=== PATIENT | male | born 1985 | race Hispanic/Latino ===

== ENCOUNTER 2018-04-06 15:13 | Emergency (ER) | payer SELFPAY ==
[2018-04-06] MEDS ORDERED: ALUM & MAG HYDROX-SIMETHICONE 30 ML, LIDOCAINE VISCOUS 2% 15 ML PO ONE ×2 (15:23)
[2018-04-06] MEDS ORDERED: SODIUM CHLORIDE 0.9% 1000ML 1,000 ML IVS ONE ×2 (15:23→17:14)
[2018-04-06] MEDS ORDERED: LIDOCAINE HCL 2% (MOUTH-THROAT) 15 ML UD ONE (15:36)
[2018-04-06] MEDS ORDERED: ALUM & MAG HYDROX-SIMETHICONE 30 ML UD ONE (15:36)
--- NOTE | 2018-04-06 15:40 | RAD ---
Procedure: XR CHEST 1 VIEW Exam Date: 04/06/2018 Ordering Provider: Arron Logan Clinical Indication: chest pain Comparison: None Findings: Cardiomediastinal silhouette is within normal limits. No focal lung consolidation. No pleural effusion. No pneumothorax. No acute osseous abnormalities. Impression: 1. No acute abnormalities in the chest. Electronically signed by: Jeffrey Stark MD 04/06/2018 3:38 PM CDT
[2018-04-06] MEDS ORDERED: ALUMINUM & MAGNESIUM HYDROXIDE 30 ML UD PO ONE (17:09)
[2018-04-06] MEDS ORDERED: SUCRALFATE 1 GM/10 ML 1 GM UD PO ONE (17:14)
[2018-04-06] MEDS ORDERED: PANTOPRAZOLE SODIUM IV 40 MG VIAL IV ONE (17:14)
[2018-04-06] MEDS ORDERED: NITROGLYCERIN 0.4 MG 25 EA TAB SL ONE ×2 (17:53)
[2018-04-06 18:24] VITALS: TEMP 98
[2018-04-06] MEDS ORDERED: HYDROcodone 7.5MG/APAP 325MG 1 EA TAB PO ONE (18:24)
--- NOTE | 2018-04-06 20:11 | ED.PDOC ---
History of Present Illness - General Chief Complaint: Chest Pain/AR Stated Complaint: chest pain Time Seen by Provider: 04/06/18 15:19 Source: patient Exam Limitations: no limitations - History of Present Illness Initial Comments: The patient is a 32-year-old male presenting to the emergency room secondary to substernal and epigastric discomfort with radiation to the left shoulder area. He has had this for last 3 hours. He did get significantly hot today while at work. On further questioning the patient has had intermittent episodes of nausea for the better part of the last year. He actually reduce his alcohol intake as he was having increasing stomach problems. He is not having weight loss. He has not thrown up any. He has not passed any blood. No palpitations. No syncope or near-syncope. No history of any heart problems. No history of any lung problems.he did drink more heavily up until a month ago when he started reducing significantly. Timing/Duration: 1-3 hours Severity: moderate Improving Factors: nothing Worsening Factors: nothing Associated Symptoms: chest pain, loss of appetite, nausea/vomiting Allergies/Adverse Reactions: Allergies NO KNOWN ALLERGY Allergy (Verified 04/06/18 15:56) Home Medications: Ambulatory Orders Famotidine [Pepcid Tab] 20 mg PO BID #60 tab 04/06/18 Sucralfate Tab [Carafate Tab] 1 gm PO QID #120 tab 04/06/18 Review of Systems - Review of Systems Constitutional: States: no symptoms reported EENTM: States: no symptoms reported Respiratory: States: no symptoms reported Cardiology: States: chest pain Gastrointestinal/Abdominal: States: abdominal pain, nausea. Denies: constipation, diarrhea Genitourinary: States: no symptoms reported Musculoskeletal: States: no symptoms reported Skin: States: no symptoms reported Neurological: States: no symptoms reported Endocrine: States: no symptoms reported All other Systems: No Change from Baseline Past Medical History (General) - Patient Medical History Hx Stroke: No Hx of COPD: No Hx Cardiac Disorders: No Hx Congestive Heart Failure: No Hx Hypertension: No Hx Diabetes: No Hx Cancer: No Hx Hepatitis C: No Surgical History: no surgical history - Vaccination History Hx Tetanus, Diphtheria Vaccination: No Hx Influenza Vaccination: No Hx Pneumococcal Vaccination: No Immunizations Up to Date: No - Social History Hx Tobacco Use: No Hx Chewing Tobacco Use: No Hx Alcohol Use: No Hx Substance Use: No Hx Substance Use Treatment: No Hx Depression: No Feels Threatened In Home Enviroment: No Feels Threatened In a Relationship: No Hx Physical Abuse: No Hx Emotional Abuse: No Hx Suspected Abuse: No - Activities of Daily Living Hospice Agency (if applicable):: None - Female History Patient is a Female of Child Bearing Age (10 -59 yrs old): No Patient : No Family Medical History - Family History Mother Family History: Unknown Physical Exam - Physical Exam General Appearance: Alert, Comfortable, No apparent distress Eye Exam: bilateral normal Ears, Nose, Throat: hearing grossly normal, normal ENT inspection, normal pharynx Neck: full range of motion, supple, normal inspection Respiratory: lungs clear, normal breath sounds, no respiratory distress, no accessory muscle use Cardiovascular/Chest: normal peripheral pulses, regular rate, rhythm, no edema Peripheral Pulses: radial,right: 2+, radial,left: 2+, dorsalis pedis,right: 2+, dorsalis pedis,left: 2+ Gastrointestinal/Abdominal: soft, other - epigastric discomfort to palpation. No rebound or definite peritoneal signs. 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 nml as tested, alert, normal mood/affect, oriented x 3 Skin Exam: normal color Comments: Vital Signs - 24 hr 04/06/18 04/06/18 04/06/18 15:32 15:49 17:14 Temperature 99 F Pulse Rate [ 108 H 108 H 109 H monitor] Respiratory 21 22 20 Rate Blood Pressure 135/84 156/100 [left] O2 Sat by Pulse 96 98 Oximetry 04/06/18 04/06/18 04/06/18 17:31 17:50 18:23 Temperature 98 F Pulse Rate [ 92 H 74 monitor] Respiratory 19 21 Rate Blood Pressure 141/75 137/96 134/81 [left] O2 Sat by Pulse 97 97 Oximetry 04/06/18 04/06/18 19:26 20:08 Temperature Pulse Rate [ 88 86 monitor] Respiratory 20 16 Rate Blood Pressure 120/79 129/67 [left] O2 Sat by Pulse 97 98 Oximetry Progress - Progress Progress: 04/06/18 20:17 the patient's a 32-year-old male presenting to the emergency room secondary to epigastric and substernal chest discomfort. Given his more extended history of symptoms, the patient has a significant gastritis that was likely initially alcohol induced. He is to continue not drinking alcohol. He needs to avoid hot or spicy meals for the next couple of weeks. He needs to take small meals. He needs to keep himself well-hydrated. The patient is going to be placed on Carafate and famotidine for the next month. He needs to obtain some Maalox for as needed use. ER warnings were given for any significant worsening. He should follow back up with his primary care doctor for reevaluation before the weekend. Laboratory work, EKG and chest x-ray were reassuring here today. - Results/Orders Results/Orders: 04/06/18 15:30 EKG STAT initial EKG shows mild sinus tachycardia at 116 bpm. Repeat shows a heart rate of [address] segment changes concerning for ischemia. Normal QT interval. Normal axis. Normal R-wave progression. Laboratory Results - last 24 hr 04/06/18 04/06/18 04/06/18 15:29 15:29 15:29 WBC 8.1 RBC 5.15 Hgb 15.7 Hct 45.2 MCV 87.7 MCH 30.5 MCHC 34.7 RDW 13.0 Plt Count 250 MPV 9.2 Absolute Neuts (auto) 5.30 Absolute Lymphs (auto) 2.00 Absolute Monos (auto) 0.60 Absolute Eos (auto) 0.10 Absolute Basos (auto) 0.00 Neutrophils % 65.9 Lymphocytes % 24.8 Monocytes % 7.5 Eosinophils % 1.5 Basophils % 0.3 PT 9.9 INR 0.99 PTT (SP) 26.3 Sodium 138 Potassium 3.7 Chloride 100 L Carbon Dioxide 28 Anion Gap 13.7 BUN 12 Creatinine 0.76 BUN/Creatinine Ratio 15.8 Random Glucose 150 H Serum Osmolality 278.3 Lactic Acid Calcium 9.4 Total Bilirubin 0.4 AST 74 H ALT 213 H Alkaline Phosphatase 83 Creatine Kinase 154 CK-MB (CK-2) 1.1 CK-MB (CK-2) % Not Reportable Troponin I < 0.02 B-Natriuretic Peptide 5.8 Serum Total Protein 8.1 Albumin 4.9 Globulin 3.2 Albumin/Globulin Ratio 1.5 Amylase 71 Lipase 31 04/06/18 04/06/18 15:51 19:12 WBC RBC Hgb Hct MCV MCH MCHC RDW Plt Count MPV Absolute Neuts (auto) Absolute Lymphs (auto) Absolute Monos (auto) Absolute Eos (auto) Absolute Basos (auto) Neutrophils % Lymphocytes % Monocytes % Eosinophils % Basophils % PT INR PTT (SP) Sodium Potassium Chloride Carbon Dioxide Anion Gap BUN Creatinine BUN/Creatinine Ratio Random Glucose Serum Osmolality Lactic Acid 1.6 Calcium Total Bilirubin AST ALT Alkaline Phosphatase Creatine Kinase 130 CK-MB (CK-2) 0.9 CK-MB (CK-2) % Not Reportable Troponin I < 0.02 B-Natriuretic Peptide Serum Total Protein Albumin Globulin Albumin/Globulin Ratio Amylase Lipase chest x-ray shows no acute pathology. Departure - Departure Clinical Impression: Gastritis Qualifiers: Gastritis type: alcoholic Chronicity: acute Gastritis bleeding: without bleeding Qualified Code(s): K29.20 - Alcoholic gastritis without bleeding Disposition: Discharge to Home or Self Care Condition: Fair Departure Forms: ED Discharge - Pt. Copy, Patient Portal Self Enrollment Instructions: Gastritis (DC) Diet: bland diet Activity: increase activity as tolerated Prescriptions: Famotidine [Pepcid Tab] 20 mg PO BID #60 tab Sucralfate Tab [Carafate Tab] 1 gm PO QID #120 tab Home Medications: Ambulatory Orders Famotidine [Pepcid Tab] 20 mg PO BID #60 tab 04/06/18 Sucralfate Tab [Carafate Tab] 1 gm PO QID #120 tab 04/06/18 Additional Instructions: the patient's a 32-year-old male presenting to the emergency room secondary to epigastric and substernal chest discomfort. Given his more extended history of symptoms, the patient has a significant gastritis that was likely initially alcohol induced. He is to continue not drinking alcohol. He needs to avoid hot or spicy meals for the next couple of weeks. He needs to take small meals. He needs to keep himself well-hydrated. The patient is going to be placed on Carafate and famotidine for the next month. He needs to obtain some Maalox for as needed use. ER warnings were given for any significant worsening. He should follow back up with his primary care doctor for reevaluation before the weekend. Laboratory work, EKG and chest x-ray were reassuring here today.
[2018-04-06 20:57] VITALS: BP 121/73; O2SAT 97
== END 2018-04-06 20:58 | disposition home or self-care (01) ==
LOC: ER 15:13
DX: K29.20 Alcoholic gastritis without bleeding (principal); R07.2 Precordial pain
CPT/HCPCS: 36415; 71045; 80053; 82150; 82550; 82553; 83605; 83690; 83880; 84484; 85025; 85610; 85730; 93005; J7030